=== PATIENT | male | born 1980 | race African-American/Black ===

== ENCOUNTER 2021-10-13 14:12 | Emergency (ER) | payer OTHER, MEDICAID ==
[~2021-10-13] VITALS: Ht 182.9 cm; Wt 91.0 kg
[2021-10-13 14:32] VITALS: BP 135/88
[2021-10-13 15:21] LABS: BASOPHILS % 0.9 % (0.0-2.0); EOSINOPHILS % 1.7 % (0.0-5.0); HEMATOCRIT. 42.1 % (42.0-52.0); HEMOGLOBIN. 14.3 g/dL (14.0-18.0); LYMPHOCYTES % 24.8 % (20.0-50.0); MEAN CORPUSCULAR HEMOGLOBIN 31.9 pg (28.0-32.0); MEAN CORPUSCULAR VOLUME 94.2 fL (80.0-94.0); MEAN PLATELET VOLUME 8.2 fl (7.4-10.4); MONOCYTES % 6.5 % (2.0-8.0); NEUTROPHILS % 66.1 % (40.0-76.0); PLATELET 215 x1000/uL (130-400); RED BLOOD CELL COUNT 4.47 mill/uL (4.7-6.1); RED CELL DISTRIBUTION WIDTH 14.2 % (11.6-14.6)
[2021-10-13 15:52] LABS: CHLORIDE 107 mEq/L (98-107)
[2021-10-13 16:08] LABS: ETHANOL BLOOD < 10 mg/dL
== END 2021-10-13 16:16 | disposition home or self-care (01) ==
LOC: ER 14:12
DX: F19.10 Other psychoactive substance abuse, uncomplicated (principal); Z98.890 Other specified postprocedural states
CPT/HCPCS: 36415; 80053; 80320; 85025; 99283; G0480